=== PATIENT | female | born 2000 | race Caucasian/White ===

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

== ENCOUNTER 2021-03-05 19:51 | Emergency (ER) | payer OTHER, SELFPAY ==
[2021-03-05 20:11] VITALS: BP 119/71; PULSE 64; RESP 18; TEMP 36.6; O2SAT 99; BMI 24.1
--- NOTE | 2021-03-05 20:52 | XRR_ITS ---
PROCEDURE INFORMATION: Exam: XR Thoracic Spine Exam date and time: 03/05/2021 8:52 PM Age: 20 years old Clinical indication: Pain in thoracic spine; Without myelpathy or radiculopathy; Additional info: Back pain, not TECHNIQUE: Imaging protocol: XR of the thoracic spine. Views: 3 views. Total images: 3 COMPARISON: CT abdomen w con* [id number] 11/21/2020 9:51 AM FINDINGS: Bones/joints: Normal. No acute fracture. Normal alignment. Soft tissues: Unremarkable. XR/XR thoracic spine 3V* [id number] IMPRESSION: No acute findings.
--- NOTE | 2021-03-05 20:52 | XRR_ITS ---
PROCEDURE INFORMATION: Exam: XR Lumbosacral Spine Exam date and time: 03/05/2021 8:52 PM Age: 20 years old Clinical indication: Low back pain; Additional info: Back pain, not TECHNIQUE: Imaging protocol: XR of the lumbosacral spine. Views: 2 or 3 views. Total images: 3 COMPARISON: CT abdomen w con* [id number] 11/21/2020 9:51 AM FINDINGS: Bones/joints: Normal. No acute fracture. Normal alignment. Soft tissues: Unremarkable. Other findings: Nipple ring. XR/XR lumbar spine 2-3V* [id number] IMPRESSION: Nonacute.
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
[2021-03-05 21:57] VITALS: BP 111/66; PULSE 64; RESP 14; O2SAT 98
== END 2021-03-05 21:58 | disposition home or self-care (01) ==
PROVIDERS: Emergency Provider Nurse Practitioner Family; PCP Family Medicine
DX: M54.6 Pain in thoracic spine (principal)
CPT/HCPCS: 72072; 72100; 99282

== ENCOUNTER 2021-04-12 05:45 | Emergency (ER) | payer OTHER, SELFPAY ==
[2021-04-12 05:48] VITALS: BP 122/77; PULSE 114; RESP 18; TEMP 37.2; O2SAT 97; BMI 23.3
--- NOTE | 2021-04-12 06:19 | PC.NURSE ---
patient arrival with c/o shingles to left arm that started 3 days ago and cough that started yesterday and today feel increased SOB. states cough is dry and can not move phlegm. LMP last week, last BM yesterday. voice sounds hoarse, BBS clear with good air movement.
--- NOTE | 2021-04-12 06:21 | W.ED.SOB ---
HPI - SOB/Dyspnea General: Chief Complaint: Shortness of Breath/Dyspnea Stated Complaint: Trouble breathing Time Seen by Provider: 04/12/21 05:52 History of Present Illness: HPI Narrative: 20 yo female complaining of cough and shortness of breath that began last night. She also has a small rash on the flexor aspect of her left wrist she is concerned of shingles. States the rash began 2 days ago. She has not had any diarrhea she has had some mild myalgias. Low-grade fever. No dysuria urgency or frequency. MD elicited complaint: shortness of breath and cough Onset (ago): day(s) Timing: constant Severity: mild Exacerbating factors: nothing Relieving factors: nothing Associated symptoms: Reports cough and fever(s); Deny abdominal pain, chest congestion, chest pain, diaphoresis, dizziness, extremity pain, hemoptysis, lightheadedness, myalgias, nausea, orthopnea, palpitations, paresthesias, polydipsia, polyuria, rash, sense of impending doom, syncope or vomiting Treatment prior to arrival: none Review of Systems Const: Reports: fever(s); Denies: diaphoresis ENMT: Denies: throat pain, ear or mastoid pain, nasal discharge or nasal congestion Card: Denies: chest pain, palpitations, lightheadedness, syncope or orthopnea Resp: Denies: hemoptysis or chest congestion GI: Denies: abdominal pain, nausea or vomiting : Denies: flank pain, difficulty voiding, dysuria, urinary frequency or urinary urgency Musc: Denies: extremity pain Skin/Breast: Denies: rash or pruritus Neuro: Denies: dizziness Endo: Denies: polyuria or polydipsia PFSH ED PFSH: Medical History Anxiety Surgical History History of tonsillectomy Family History Other Cancer Diabetes Lung disease Psychiatric illness Stroke Social History Smoking and tobacco status: never smoked Alcohol intake: never Female Reproductive History: Date of last menstrual period: 04/04/20 Physical Exam Const: COMMON NORMALS: no acute distress GENERAL APPEARANCE: cooperative and comfortable ORIENTATION/CONSCIOUSNESS: Yes awake, Yes oriented to person, Yes oriented to place and Yes oriented to time HENMT: COMMON NORMALS: normocephalic, atraumatic and hearing grossly normal bilaterally HEAD & SCALP: normocephalic and atraumatic Neck/C-Spine: COMMON NORMALS: no JVD Resp: COMMON NORMALS: normal respiratory effort, No retractions, No use of accessory muscles and clear to auscultation bilaterally AUSCULTATION: clear to auscultation bilaterally Cardio: COMMON NORMALS: no JVD, regular rate, regular rhythm and No murmurs present (Cardio) RATE: regular rate RHYTHM: regular rhythm GI: COMMON NORMALS: Soft to palpation and No hepatosplenomegaly present AUSCULTATION: Yes normoactive bowel sounds PALPATION: Yes Soft to palpation, No Tenderness to palpation present (GI), No Guarding due to palpation present (GI) and Yes No hepatosplenomegaly present Extremity: COMMON NORMALS: normal to inspection, capillary refill normal, no clubbing, cyanosis or edema, no calf tenderness and no pedal edema Neuro: SENSORIUM/ORIENTATION: Yes oriented to person, Yes oriented to place and Yes oriented to time Skin: OTHER: Small abrasion like lesion on the flexor surface of the left wrist. There is no vesicles. No evidence of any dermatomal pattern with examination of the arm up into the back or neck area. Course Vital Signs: Vital signs: Vital Signs Temperature 99 F 04/12/21 05:48 Pulse Rate 66 04/12/21 07:51 Respiratory Rate 14 04/12/21 07:51 Blood Pressure 101/65 04/12/21 07:51 Pulse Oximetry 95 04/12/21 07:51 MDM - SOB/Dyspnea MDM Narrative: Medical decision making narrative: Suspect patient has viral upper respiratory infection likely COVID COVID testing ordered results are pending will discharge home. Lab Data: Labs: Lab Results 04/12/21 04/12/21 06:36 06:36 WBC 8.6 10^3/uL 10^3/ uL (4.5-13.0) RBC 4.26 10^6/uL 10^6 /uL (4.1-5.3) Hgb 12.6 g/dL g/dL (11.5-15.3) Hct 38.1 % % (37.0-47.0) MCV 89.4 fl fl (81-99) MCH 29.6 pg pg (28.0-34.0) MCHC 33.1 g/dL g/dL (30.0-36.0) RDW 11.9 % L % (12.1-15.1) Plt Count 210 10^3/cmm 10^3 /cmm (130-400) MPV 10.9 fL H fL (7.4-10.4) Neut % (Auto) 73.6 % % Lymph % (Auto) 17.4 % % Holt % (Auto) 7.9 % % Eos % (Auto) 0.5 % % Baso % (Auto) 0.4 % % Neut # (Auto) 6.31 10^3/uL 10^3 /uL (1.8-8.0) Lymph # (Auto) 1.5 10^3/uL 10^3/ uL (1.5-6.5) Holt # (Auto) 0.7 10^3/uL 10^3/ uL (0.2-0.9) Eos # (Auto) 0.0 10^3/uL 10^3/ uL (0.0-0.8) Baso # (Auto) 0.0 10^3/uL 10^3/ uL (0.0-0.1) Nucleated RBC % (a uto) 0 % % Nucleated RBCs # 0.0 /100WBC /100W BC Sodium 136 mmol/L mmol/L (136-145) Potassium 4.3 mmol/L mmol/L (3.5-5.1) Chloride 106 mmol/L mmol/L (98-107) Carbon Dioxide 17 mmol/L L mmol/ L (22-29) Anion Gap 17.3 (5-19) BUN 10 mg/dL mg/dL (6-20) Creatinine 0.7 mg/dL mg/dL (0.5-0.9) GFR Calculation 107.8 mL/min mL/m in (90-130) Glucose 75 mg/dL mg/dL (65-115) Calculated Osmolal ity 280 mOsm/kg L mOs m/kg (285-295) Calcium 8.4 mg/dL L mg/dL (8.5-10.5) Total Bilirubin 0.2 mg/dL mg/dL (0.15-1.2) AST 18 U/L U/L (0-32) ALT 14 U/L U/L (0-33) Alkaline Phosphata se 76 IU/L IU/L (35-105) Total Protein 6.4 g/dL L g/dL (6.6-8.7) Albumin 4.0 g/dL g/dL (3.5-5.2) Globulin 2.4 g/dL g/dL (1.3-4.6) Discharge Plan Discharge Patient Disposition: Home Clinical Impression: Clinical diagnosis of COVID-19 Condition: Stable Prescriptions: No Action (DME) CONTROL 0 .Route .MEDSUPPLY Qty: 1 RF: 0 (DME) Dexcom G6 Grievance Manager Misc See Rx Instructions .Route Qty: 1 RF: 3 (DME) Dexcom G6 Sensor Device See Rx Instructions .Route Qty: 3 RF: 3 (DME) Dexcom G6 Transmitter Device See Rx Instructions .Route Qty: 1 RF: 3 acarbose 25 mg tablet 25 mg PO TID Qty: 270 RF: 3 diclofenac potassium 50 mg tablet 50 mg PO Q8H PRN (Reason: pain) Qty: 15 RF: 0 methocarbamol 750 mg tablet 750 mg PO Q8H PRN (Reason: muscle spasm) Qty: 15 RF: 0 Discharge Orders: Discharge ED (Routine); Ordered 04/12/21 Ordered By: Anil Richardson Referrals: Paulo Gregg, [Primary Care Provider] - Discharge Diet: Usual diet Discharge Activity: Increase activity as tolerated Patient Instructions: Opioid Safety, COVID-19 (Coronavirus Disease 2019) (ED) Activity Restrictions/Additional Instructions: You were tested for COVID-19. Results are pending maintain self quarantine until results have returned. If there is a worsening or change of symptoms return to the emergency room. Coding Level of Care Code ED Branch Operations Manager for Fara Wilkes
--- NOTE | 2021-04-12 06:22 | ECG_ITS ---
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
--- NOTE | 2021-04-12 06:22 | XRR_ITS ---
PROCEDURE INFORMATION: Exam: XR Chest Exam date and time: 04/12/2021 6:22 AM Age: 20 years old Clinical indication: Dyspnea/cough TECHNIQUE: Imaging protocol: XR of the chest. Views: 1 view. COMPARISON: CR XR chest 1V portable [id number] 08/22/2020 2:32 PM FINDINGS: Lungs: No focal peripheral lung consolidation, air bronchogram formation, or silhouette sign. Pleural spaces: No pleural effusion or pneumothorax. Heart/Mediastinum: The cardiac silhouette is not enlarged. The mediastinal contours are normal. Bones/joints: No acute osseous abnormality. XR/XR chest 1V portable [id number] IMPRESSION: No sign of pneumonia.
[2021-04-12 06:42] LABS: Basophils % 0.4 %; Eosinophils % 0.5 %; Hematocrit 38.1 % (37.0-47.0); Hemoglobin 12.6 g/dL (11.5-15.3); Lymphocytes # 1.5 10^3/uL (1.5-6.5); Lymphocytes % 17.4 %; Mean Corpuscular HGB Conc 33.1 g/dL (30.0-36.0); Mean Corpuscular Hemoglobin 29.6 pg (28.0-34.0); Mean Corpuscular Volume 89.4 fl (81-99); Mean Platelet Volume 10.9 fL (7.4-10.4); Monocytes # 0.7 10^3/uL (0.2-0.9); Monocytes % 7.9 %; Neutrophils # 6.31 10^3/uL (1.8-8.0); Neutrophils % 73.6 %; Nucleated Red Blood Cells % 0 %; Platelet Count 210 10^3/cmm (130-400); Red Blood Count 4.26 10^6/uL (4.1-5.3); Red Cell Distribution Width 11.9 % (12.1-15.1); White Blood Count 8.6 10^3/uL (4.5-13.0)
[2021-04-12 07:06] LABS: Alanine Aminotransferase 14 U/L (0-33); Alkaline Phosphatase 76 IU/L (35-105); Anion Gap 17.3 (5-19); Aspartate Amino Transferase 18 U/L (0-32); Blood Urea Nitrogen 10 mg/dL (6-20); Calcium 8.4 mg/dL (8.5-10.5); Carbon Dioxide 17 mmol/L (22-29); Chloride 106 mmol/L (98-107); Globulin 2.4 g/dL (1.3-4.6); Glomerular Filtration Rate 107.8 mL/min (90-130); Glucose 75 mg/dL (65-115); Osmolality Calculated 280 mOsm/kg (285-295); Potassium 4.3 mmol/L (3.5-5.1); Sodium 136 mmol/L (136-145); Total Bilirubin 0.2 mg/dL (0.15-1.2); Total Protein 6.4 g/dL (6.6-8.7)
[2021-04-12 07:51] VITALS: BP 101/65; PULSE 66; RESP 14; O2SAT 95
[2021-04-12 08:56] VITALS: BP 104/58; PULSE 74; O2SAT 95
[2021-04-14 02:37] LABS: Quest SARS-CoV-2 RNA DETECTED (NOT DETECTED)
--- NOTE | 2021-04-14 10:22 | PC.NURSE ---
pt notified of postive pcr result
== END 2021-04-12 08:57 | disposition home or self-care (01) ==
PROVIDERS: Emergency Provider Family Medicine; PCP Family Medicine
DX: U07.1 COVID-19 (principal)
CPT/HCPCS: 71045; 80053; 85025; 87635; 93005; 99283

== ENCOUNTER → 2021-06-17 10:51 | Outpatient (BNVA) | payer OTHER, SELFPAY | PROVIDERS: PCP Family Medicine; Visit Provider Nurse Practitioner Women's Health | DX: Z30.9 Encounter for contraceptive management, unspecified (principal); Z30.430 Encounter for insertion of intrauterine contraceptive device | CPT/HCPCS: 81025 ==

== ENCOUNTER → 2021-07-29 16:48 | Outpatient (BNVA) | payer OTHER, SELFPAY | PROVIDERS: PCP Family Medicine; Visit Provider Nurse Practitioner Women's Health | DX: Z30.431 Encounter for routine checking of intrauterine contraceptive device (principal); R10.2 Pelvic and perineal pain; N83.201 Unspecified ovarian cyst, right side | CPT/HCPCS: 76830 ==

== ENCOUNTER 2021-09-11 10:33 | Emergency (ER) | payer OTHER, SELFPAY ==
[2021-09-11 10:35] VITALS: BP 124/70; PULSE 66; RESP 16; TEMP 37.1; O2SAT 98; BMI 22.4
--- NOTE | 2021-09-11 10:53 | US_ITS ---
WS: [id number] TRANSABDOMINAL PELVIC AND TRANSVAGINAL PELVIC ULTRASOUND HISTORY: right sided pelvic pain COMPARISON: 07/29/2021 Uterus: 7.9 cm x 4.1 cm x 3.2 cm. Normal size anteverted uterus. No fibroid or mass. Endometrium: 0.3 cm. Normal appearance of the endometrium. IUD normally positioned along the endometr ial canal. Right ovary: 3.5 cm x 2.9 cm x 2.6 cm. Normal size ovary. Small follicles with the largest measuring 2.1 x 1.9 x 1.4 cm. The previously described hemorrhagic cyst within the RIGHT ovary has significantl y decreased in size. Left ovary: 2.2 cm x 1.6 cm x 1.1 cm. Normal size. No cystic or solid mass. Small amount of free fluid in the cul-de-sac but overall significantly improved since 07/29/2021. US/US pelvic with transvaginal IMPRESSION: 1. Overall significant improvement in appearance of the RIGHT adnexal hemorrha gic cyst and the free fluid in the pelvis since 07/29/2021. 2. Normal endometrium with normally positioned IUD.
--- NOTE | 2021-09-11 10:54 | W.ED.ABDPA2 ---
HPI - Abdominal Pain General: Chief Complaint: Abdominal Pain Stated Complaint: right sided ovarian pain Time Seen by Provider: 09/11/21 10:40 History of Present Illness: Patient is a 21-year-old G0 female comes to the ED with right pelvic pain. Patient's been having constant right sided pelvic pain for the past 2 months. She has a known right ovarian cyst that she is currently scheduled to have a follow-up ultrasound done to check on cyst at the end of this month. Yesterday her right pelvic pain worsened and her OB told her to come to the ED if pain worsens before schedule ultrasound later this month. She currently rates her pain a 7 out of 10. She started having some light spotting yesterday as well. Denies any heavy bleeding. Denies any fever, chills, nausea/vomiting, dysuria, hematuria or bowel symptoms. Last menstrual period was on July 23, 2021 and she currently has an IUD inserted. Associated Symptoms: Denies chills, constipation, diarrhea, dysuria, fever(s), hematochezia, hematuria, nausea and vomiting Related Data: Date of Last Menstrual Period: 04/04/20 Review of Systems Const: Denies: fever(s), chills or fatigue Eyes: Denies: change in vision or eye discomfort ENMT: Denies: throat pain, odynophagia, nasal discharge or nasal congestion Card: Denies: chest pain, palpitations, edema, swelling of feet/ankles, dyspnea on exertion or orthopnea Resp: Denies: dyspnea, productive cough or non-productive cough GI: Denies: abdominal pain, nausea, vomiting, diarrhea, constipation or hematochezia : Reports: vaginal bleeding (light spotting) and pelvic pain (right side); Denies: flank pain, dysuria or hematuria Musc: Denies: neck pain, back pain or extremity swelling Skin/Breast: Denies: rash or new lesions Neuro: Denies: headache(s), numbness in extremities or weakness in extremities PFS ED PFSH: Medical History Anxiety Diabetes No pertinent past medical history neghx, htn,thyroid,dvt/pe PCP: Paulo BORRERO Surgical History History of tonsillectomy Family History Grandmother Breast cancer maternal--unknown age Family/Other Breast cancer maternal aunt Hypertension paternal great grandmother Father No problems noted. Family/Other Breast cancer maternal great grandma Diabetes paternal great grandmother Other Cancer Denies family history of Colon cancer Ovarian cancer Heart disease Hyperlipidemia Uterine cancer Thyroid disease Stroke Social History Smoking and tobacco status: never smoked Alcohol intake: never Female Reproductive History: Date of last menstrual period: 04/04/20 Physical Exam Const: COMMON NORMALS: patient oriented x3, healthy appearing and alert GENERAL APPEARANCE: cooperative HENMT: COMMON NORMALS: normocephalic HEAD & SCALP: normocephalic MOUTH: Normal oral and palatal mucosa present THROAT: posterior oropharynx normal and uvula midline Neck/C-Spine: COMMON NORMALS: supple GENERAL: Yes normal visual inspection Resp: COMMON NORMALS: normal respiratory effort, No retractions, No use of accessory muscles and clear to auscultation bilaterally AUSCULTATION: clear to auscultation bilaterally Cardio: COMMON NORMALS: regular rate, regular rhythm, S1 normal heart sound present, S2 normal heart sound present, No gallops present (Cardio), No clicks present (Cardio), No murmurs present (Cardio) and Peripheral pulses 2+ throughout RATE: regular rate RHYTHM: regular rhythm HEART SOUNDS: S1 normal heart sound present and S2 normal heart sound present PERIPHERAL PULSES: Peripheral pulses 2+ throughout GI: COMMON NORMALS: Normal to inspection, nondistended, normoactive bowel sounds present, Soft to palpation and no masses PALPATION: Yes Soft to palpation and Yes Tenderness to palpation present (GI) Details: other (Right pelvic tenderness) : COMMON NORMALS: Yes no CVA tenderness BLADDER/KIDNEY EXAM: Yes no CVA tenderness Back/Pelvis: COMMON NORMALS: no CVA tenderness Extremity: COMMON NORMALS: normal to inspection and no pedal edema Neuro: COMMON NORMALS: patient oriented x3 SENSORIUM/ORIENTATION: Yes alert GAIT: Yes Normal gait present Skin: GENERAL SKIN EXAM: dry skin Course Vital Signs: Vital signs: Vital Signs Temperature 98.7 F 09/11/21 10:35 Pulse Rate 66 09/11/21 10:35 Respiratory Rate 16 09/11/21 10:35 Blood Pressure 124/70 09/11/21 10:35 Pulse Oximetry 98 09/11/21 10:35 MDM - Abdominal Pain Medical Decision Making Patient is a 21-year-old G0 female comes to the ED with right pelvic pain. Patient's been having constant right sided pelvic pain for the past 2 months. 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 Vitals are stable. Patient appears nontoxic in no acute distress or pain. Shehas some right pelvic tenderness but rest of exam is benign. CBC, CMP and UA were unremarkable. Ultrasound of pelvis showed an improvement in appearance of right adnexal hemorrhagic cyst and thefree fluid in the pelvis compared to July 29, 2021 ultrasound. Patient is stable for discharge home was diagnosed with an ovarian cyst. She was told to follow-up with her senior manufacturing supervisor doctor within the next week for reevaluation. Return to ED precautions given. Patient understood and agreed with plan. Lab Data I reviewed the patient's lab results. : 09/11/21 11:00 09/11/21 11:00 Labs/Radiology: Radiology Impressions Pelvic/Transvag US 09/11/21 10:53 IMPRESSION: 1. Overall significant improvement in appearance of the RIGHT adnexal hemorrhagic cyst and the free fluid in the pelvis since 07/29/2021. 2. Normal endometrium with normally positioned IUD. Laboratory Results WBC 8.5 10^3/uL (4.5-13.0) 09/11/21 11:00 RBC 4.40 10^6/uL (4.1-5.3) 09/11/21 11:00 Hgb 13.1 g/dL (11.5-15.3) 09/11/21 11:00 Hct 39.0 % (37.0-47.0) 09/11/21 11:00 MCV 88.6 fl (81-99) 09/11/21 11:00 MCH 29.8 pg (28.0-34.0) 09/11/21 11:00 MCHC 33.6 g/dL (30.0-36.0) 09/11/21 11:00 RDW 12.2 % (12.1-15.1) 09/11/21 11:00 Plt Count 264 10^3/cmm (130-400) 09/11/21 11:00 MPV 11.1 fL (7.4-10.4) H 09/11/21 11:00 Neut % (Auto) 59.6 % 09/11/21 11:00 Lymph % (Auto) 30.6 % 09/11/21 11:00 Gooding % (Auto) 6.6 % 09/11/21 11:00 Eos % (Auto) 2.7 % 09/11/21 11:00 Baso % (Auto) 0.4 % 09/11/21 11:00 Neut # (Auto) 5.09 10^3/uL (1.8-8.0) 09/11/21 11:00 Lymph # (Auto) 2.6 10^3/uL (1.5-6.5) 09/11/21 11:00 Gooding # (Auto) 0.6 10^3/uL (0.2-0.9) 09/11/21 11:00 Eos # (Auto) 0.2 10^3/uL (0.0-0.8) 09/11/21 11:00 Baso # (Auto) 0.0 10^3/uL (0.0-0.1) 09/11/21 11:00 Nucleated RBC % (auto) 0 % 09/11/21 11:00 Nucleated RBCs # 0.0 /100WBC 09/11/21 11:00 Sodium 135 mmol/L (136-145) L 09/11/21 11:00 Potassium 4.4 mmol/L (3.5-5.1) 09/11/21 11:00 Chloride 102 mmol/L (98-107) 09/11/21 11:00 Carbon Dioxide 24 mmol/L (22-29) 09/11/21 11:00 Anion Gap 13.4 (5-19) 09/11/21 11:00 BUN 12 mg/dL (6-20) 09/11/21 11:00 Creatinine 0.6 mg/dL (0.5-0.9) 09/11/21 11:00 GFR Calculation 127.5 mL/min (90-130) 09/11/21 11:00 Glucose 71 mg/dL (65-115) 09/11/21 11:00 Calculated Osmolality 278 mOsm/kg (285-295) L 09/11/21 11:00 Calcium 9.3 mg/dL (8.5-10.5) 09/11/21 11:00 Total Bilirubin 0.3 mg/dL (0.15-1.2) 09/11/21 11:00 AST 35 U/L (0-32) H 09/11/21 11:00 ALT 43 U/L (0-33) H 09/11/21 11:00 Alkaline Phosphatase 94 IU/L (35-105) 09/11/21 11:00 Total Protein 7.4 g/dL (6.6-8.7) 09/11/21 11:00 Albumin 4.6 g/dL (3.5-5.2) 09/11/21 11:00 Globulin 2.8 g/dL (1.3-4.6) 09/11/21 11:00 Lipase 48 U/L (13-60) 09/11/21 11:00 HCG, Qual Negative (Negative) 09/11/21 11:00 Urine Color Yellow (Yellow) 09/11/21 10:40 Urine Appearance Clear (CLEAR) 09/11/21 10:40 Urine pH 5 (5-7) 09/11/21 10:40 Ur Specific Strong 1.025 (1.005-1.030) 09/11/21 10:40 Urine Protein Neg (Negative) 09/11/21 10:40 Urine Glucose (UA) Norm (Normal) 09/11/21 10:40 Urine Ketones Negative (Negative) 09/11/21 10:40 Urine Blood Neg (Negative) 09/11/21 10:40 Urine Nitrate Negative (Negative) 09/11/21 10:40 Urine Bilirubin Neg (Negative) 09/11/21 10:40 Prot Sulfosalicylic Acd Negative (Negative) 09/11/21 10:40 Urine Urobilinogen Norm mg/dL (Negative) 09/11/21 10:40 Ur Leukocyte Esterase Negative (Negative) 09/11/21 10:40 Discharge Plan Discharge Patient Disposition: Home Clinical Impression: Right ovarian cyst Condition: Stable Prescriptions: No Action Kyleena 17.5 mcg/24 hrs (5 yrs) 19.5 mg intrauterine device 1 device intrauterine .CONTINUOUS 0RF escitalopram oxalate [Lexapro] 10 mg tablet 10 mg PO DAILY 0RF (DME) Dexcom G6 Project Safety Manager Misc See Rx Instructions .Route Qty: 1 3RF Rx Instructions: As directed (DME) Dexcom G6 Sensor Device See Rx Instructions .Route Qty: 3 3RF Rx Instructions: As directed (DME) Dexcom G6 Transmitter Device See Rx Instructions .Route Qty: 1 3RF Rx Instructions: As directed ibuprofen 800 mg tablet 800 mg PO TID PRN (Reason: pelvic pain) 0RF albuterol sulfate 2.5 mg /3 mL (0.083 %) solution for nebulization 2.5 mg inhalation Q4H PRN (Reason: Shortness Of Breath) 0RF albuterol sulfate 90 mcg/actuation HFA aerosol inhaler 1 - 2 puff INHALATION Q4H PRN (Reason: Shortness Of Breath) 0RF Discharge Orders: Discharge ED (Routine); Ordered 09/11/21 Ordered By: German Pantoja Referrals: Paulo Gregg, DO [Primary Care Provider] - Discharge Diet: Regular Discharge Activity: Increase activity as tolerated Patient Instructions: Ovarian Cyst (ED) Activity Restrictions/Additional Instructions: Follow-up with medical provider as directed. Contact Dr. Smith's office after discharge from ED to set up an appointment for follow-up on ovarian cyst. Take [id number] Tylenol or ibuprofen for pain. Return to the ER or your medical provider if condition worsens. Please read and understand discharge instructions. Thank you for choosing [facility] for your healthcare needs today. Please realize this is an emergency room and that we are providing you with a medical screening exam and this may not be complete and all inclusive of all the testing and or work up that you may need to determine your ailment or severity of your illness. It is very important that you follow up as instructed or that you return to the Emergency Department should you have concerns or if your condition changes or worsens in any way. Coding Level of Care Code ED Flame Gouger for Fara Fwd Exam Comprehensive
[2021-09-11 11:36] LABS: Add Urine Microscopic? NO; Charge for UA Resulting for Rev
[2021-09-11 11:41] LABS: Bilirubin Urine Neg (Negative); Blood Urine Neg (Negative); Glucose Urine UA Norm (Normal); Ketones Urine Negative (Negative); Leukocyte Esterase Urine Negative (Negative); Nitrate Urine Negative (Negative); Protein Urine Neg (Negative); Specific Gravity, Urine 1.025 (1.005-1.030); Sulfosalicylic Acid Urine Negative (Negative); Urine Appearance Clear (CLEAR); Urine Color Yellow (Yellow); Urobilinogen Urine Norm (Negative); pH Urine 5 (5-7)
[2021-09-11 11:41] LABS: Basophils % 0.4 %; Eosinophils # 0.2 10^3/uL (0.0-0.8); Eosinophils % 2.7 %; Hemoglobin 13.1 g/dL (11.5-15.3); Lymphocytes # 2.6 10^3/uL (1.5-6.5); Lymphocytes % 30.6 %; Mean Corpuscular HGB Conc 33.6 g/dL (30.0-36.0); Mean Corpuscular Hemoglobin 29.8 pg (28.0-34.0); Mean Corpuscular Volume 88.6 fl (81-99); Mean Platelet Volume 11.1 fL (7.4-10.4); Monocytes # 0.6 10^3/uL (0.2-0.9); Monocytes % 6.6 %; Neutrophils # 5.09 10^3/uL (1.8-8.0); Neutrophils % 59.6 %; Nucleated Red Blood Cells % 0 %; Platelet Count 264 10^3/cmm (130-400); Red Cell Distribution Width 12.2 % (12.1-15.1); White Blood Count 8.5 10^3/uL (4.5-13.0)
[2021-09-11 11:56] LABS: HCG, Serum Qual Negative (Negative)
[2021-09-11 12:05] LABS: Albumin Level 4.6 g/dL (3.5-5.2); Alkaline Phosphatase 94 IU/L (35-105); Blood Urea Nitrogen 12 mg/dL (6-20); Calcium 9.3 mg/dL (8.5-10.5); Carbon Dioxide 24 mmol/L (22-29); Chloride 102 mmol/L (98-107); Creatinine Clr Calc Pharmacy 138.5831; Globulin 2.8 g/dL (1.3-4.6); Glomerular Filtration Rate 127.5 mL/min (90-130); Glucose 71 mg/dL (65-115); Lipase 48 U/L (13-60); Osmolality Calculated 278 mOsm/kg (285-295); Sodium 135 mmol/L (136-145); Total Bilirubin 0.3 mg/dL (0.15-1.2); Total Protein 7.4 g/dL (6.6-8.7)
[2021-09-11 12:07] LABS: Anion Gap 13.4 (5-19); Potassium 4.4 mmol/L (3.5-5.1)
[2021-09-11 12:08] LABS: Alanine Aminotransferase 43 U/L (0-33); Aspartate Amino Transferase 35 U/L (0-32)
[2021-09-11 12:54] VITALS: BP 110/68; PULSE 59; RESP 16; O2SAT 99
== END 2021-09-11 12:55 | disposition home or self-care (01) ==
PROVIDERS: Emergency Provider Physician Assistant; PCP Family Medicine
DX: N83.201 Unspecified ovarian cyst, right side (principal)
CPT/HCPCS: 76830; 76856; 80053; 81003; 83690; 84703; 85025; 99283

== ENCOUNTER → 2021-10-16 08:48 | Outpatient (BNVA) | payer OTHER, SELFPAY | PROVIDERS: PCP Family Medicine; Visit Provider Nurse Practitioner Women's Health | DX: E11.9 Type 2 diabetes mellitus without complications (principal) | CPT/HCPCS: 83036; 84443 ==

== ENCOUNTER → 2022-01-14 15:08 | Outpatient (BNVA) | payer OTHER, SELFPAY | PROVIDERS: PCP Family Medicine; Visit Provider Clinical Nurse Specialist Adult Health | DX: J02.9 Acute pharyngitis, unspecified (principal) | CPT/HCPCS: 87880 ==

== ENCOUNTER 2022-03-04 08:37 | Outpatient (RCR) | payer OTHER, SELFPAY | END 2022-03-28 23:59 | disposition home or self-care (01) | LOC: SPT 08:37 | PROVIDERS: PCP Family Medicine; Visit Provider Clinical Nurse Specialist Adult Health | DX: M62.830 Muscle spasm of back (principal) | CPT/HCPCS: 97110; 97161 ==

== ENCOUNTER 2022-06-23 08:14 | Outpatient (CLI) | payer OTHER, SELFPAY ==
--- NOTE | 2022-06-23 08:00 | MR_ITS ---
WS: [id number] MRI LUMBAR SPINE NONCONTRAST HISTORY: Low back and bilateral lower extremity pain. COMPARISON: Lumbar spine radiograph 03/05/2021 TECHNIQUE: Sagittal and axial multisequence imaging is submitted. Very slight straightening of the normal lumbar lordosis. Mild curvature. Disc spaces and vertebral body heights are well-preserved. Conus terminates normally at L1-2 disc level. L1-L2: Normal. L2-L3: Normal. L3-L4: Normal. L4-L5: Mild annular disc bulging with facet and ligamentum flavum hypertrophy. No significant stenosi s. L5-S1: Normal. Normal paravertebral soft tissues. MR/MR lumbar spine wo con* [id number] IMPRESSION: 1. No significant central or foraminal stenosis. No disc protrusions. 2. Very mild facet joint arthritis at L4-5.
--- NOTE | 2022-06-23 09:30 | MR_ITS ---
WS: [id number] MRI THORACIC SPINE noncontrast. HISTORY: pain in back COMPARISON: Radiographs 03/05/2021 TECHNIQUE: Multiplanar sequences are performed in sagittal and axial planes. Very slight straightening of the normal thoracic kyphosis. Disc spaces and vertebral body heights are well-maintained. Normal signal thoracic cord. No atrophy or enlargement. Conus tapers normally and n o near L1. No disc protrusions or stenosis. No cord compression. Paravertebral soft tissues are normal. MR/MR thoracic spin wo con* [id number] IMPRESSION: Unremarkable MRI of thoracic spine. No fractures or disc space narrowing. No si gnificant stenosis or disc protrusion.
== END 2022-06-23 08:15 | disposition home or self-care (01) ==
LOC: RAD 08:15
PROVIDERS: Family Provider Family Medicine; PCP Family Medicine; Visit Provider Clinical Nurse Specialist Adult Health
DX: M54.50 Low back pain, unspecified (principal); M54.6 Pain in thoracic spine; M13.88 Other specified arthritis, other site
CPT/HCPCS: 72146; 72148

== ENCOUNTER 2022-12-22 13:33 | Outpatient (CLI) | payer OTHER, SELFPAY ==
[2022-12-22 13:54] VITALS: BP 100/56; PULSE 54
[2022-12-22 14:14] VITALS: BP 98/55; PULSE 62
[2022-12-22 14:22] LABS: Amorphous Sediment Urine 1+ /hpf; Bacteria Urine TRACE /hpf; Bilirubin Urine Neg (Negative); Blood Urine Neg (Negative); Glucose Urine UA Norm (Normal); Ketones Urine Negative (Negative); Leukocyte Esterase Urine Negative (Negative); Nitrate Urine Negative (Negative); Protein Urine Neg (Negative); Squamous Epithelial Cell Urine 0-4 /hpf (0-5); Sulfosalicylic Acid Urine Negative (Negative); Urine Appearance SL Hazy (CLEAR); Urine Color Yellow (Yellow); Urobilinogen Urine Norm (Negative); WBC Urine 0-4 /hpf (0-5); pH Urine 8 (5-7)
[2022-12-22 14:23] LABS: Add Urine Culture? No
[2022-12-22 14:27] VITALS: TEMP 36.4
[2022-12-22 14:34] VITALS: BP 105/65; PULSE 67
[2022-12-22 14:54] VITALS: BP 110/62; PULSE 60
[2022-12-22 15:14] VITALS: BP 104/60; PULSE 66
== END 2022-12-22 15:26 | disposition home or self-care (01) ==
LOC: OPOB 13:46 → OBGYN 13:47
PROVIDERS: Family Provider Family Medicine; PCP Family Medicine; Visit Provider Obstetrics & Gynecology
DX: O26.899 Other specified pregnancy related conditions, unspecified trimester (principal); Z3A.00 Weeks of gestation of pregnancy not specified; R10.9 Unspecified abdominal pain
CPT/HCPCS: 81001; 99211

== ENCOUNTER 2023-03-17 20:21 | Outpatient (CLI) | payer OTHER, SELFPAY ==
[2023-03-17] VITALS (10 sets, daily range): BP systolic 100–118; BP diastolic 59–70; PULSE 66–90; RESP 15–16; TEMP 36.6; BMI 26.6
[2023-03-17 20:55] LABS: Nitrazine Paper, PH Negative
[2023-03-17 21:42] LABS: Actim Prom Negative
== END 2023-03-17 22:00 | disposition home or self-care (01) ==
LOC: OPOB 20:26 → OBGYN 20:28 → OPOB 20:40 → OBGYN 20:41
PROVIDERS: Family Provider Family Medicine; PCP Family Medicine; Visit Provider Family Medicine
DX: O26.899 Other specified pregnancy related conditions, unspecified trimester (principal); Z3A.00 Weeks of gestation of pregnancy not specified; N89.8 Other specified noninflammatory disorders of vagina
CPT/HCPCS: 59025; 83986; 84112; 99211

== ENCOUNTER 2023-03-22 21:53 | Outpatient (CLI) | payer OTHER, SELFPAY ==
[2023-03-22 22:02] VITALS: BP 118/62; PULSE 61; TEMP 36.2
[2023-03-22 22:18] VITALS: BP 112/64; PULSE 62
[2023-03-22 22:22] VITALS: BMI 26.8
== END 2023-03-22 22:33 | disposition home or self-care (01) ==
LOC: OPOB 21:54 → OBGYN 21:55
PROVIDERS: Family Provider Family Medicine; PCP Family Medicine; Visit Provider Family Medicine
DX: O26.899 Other specified pregnancy related conditions, unspecified trimester (principal); Z3A.00 Weeks of gestation of pregnancy not specified; N89.8 Other specified noninflammatory disorders of vagina
CPT/HCPCS: 59025; 83986; 99211

== ENCOUNTER 2023-03-28 08:28 | Outpatient (CLI) | payer OTHER, SELFPAY ==
[2023-03-28] VITALS (11 sets, daily range): BP systolic 100–109; BP diastolic 58–72; PULSE 59–86; RESP 16; BMI 27.3
[2023-03-28 09:29] LABS: Bilirubin Urine Neg (Negative); Blood Urine Neg (Negative); Glucose Urine UA Norm (Normal); Ketones Urine 1+ (Negative); Leukocyte Esterase Urine Negative (Negative); Nitrate Urine Negative (Negative); Protein Urine Neg (Negative); Sulfosalicylic Acid Urine Negative (Negative); Urine Appearance SL Hazy (CLEAR); Urine Color Yellow (Yellow); Urobilinogen Urine 1 mg/dL (Negative); pH Urine 8 (5-7)
[2023-03-28 09:30] LABS: Add Urine Culture? No; Bacteria Urine 2+ /hpf; WBC Urine 0-4 /hpf (0-5)
[2023-03-28] MEDS: lactated ringers 1,000 ML 999 ML IV (09:32)
[2023-03-28] MEDS: ondansetron 2 mg/ML SDV 2 mL 8 MG IVP (09:33)
[2023-03-28 09:39] LABS: Alanine Aminotransferase 12 U/L (0-33); Albumin Level 2.9 g/dL (3.5-5.2); Alkaline Phosphatase 194 U/L (35-105); Anion Gap 12.4 (5-19); Aspartate Amino Transferase 16 U/L (0-32); Blood Urea Nitrogen 4 mg/dL (6-20); Calcium 8.4 mg/dL (8.5-10.5); Carbon Dioxide 21 mmol/L (22-29); Chloride 103 mmol/L (98-107); Globulin 2.8 g/dL (1.3-4.6); Glomerular Filtration Rate 155.7 mL/min (90-130); Glucose 83 mg/dL (65-115); Osmolality Calculated 272 mOsm/kg (285-295); Potassium 3.4 mmol/L (3.5-5.1); Sodium 133 mmol/L (136-145); Total Bilirubin 0.4 mg/dL (0.15-1.2); Total Protein 5.7 g/dL (6.6-8.7)
--- NOTE | 2023-03-28 11:25 | P.TNLD_ITS ---
OB L&D Triage Visit Information: Date of evaluation: 03/28/23 Reason for evaluation: threatened labor Comments/Additional reason(s) for visit: 22-year-old female G1, P0 at 38.3 weeks gestation with DWIGHT 04/08/2023 observed on labor and delivery triage with complaints of nausea and vomiting unable to keep fluids or solids down since yesterday. Patient complains of occasional contractions and low back pain. She denies leakage of fluid or vaginal bleeding. Patient receives care with Dr. Encarnacion and intends to deliver in [place]. Patient's history was somewhat questionable for type 1 diabetes, she denied any treatment with insulin. CMP was essentially unremarkable with normal blood sugar noted. Urine had +1 ketones which I suspect will resolve now that she is tolerating fluids and can eat solid food. Discussed a bland diet and to increase hydration as tolerated. If after returning home she is unable to keep food or fluids down or any signs of labor to include frequent contractions leakage of fluid or vaginal bleeding or decreased movement patient is instructed to return here to labor and delivery are to [place]. Patient verbalizes understanding. Patient's pelvic exam from her previous exam last week is unchanged. Patient was treated with IV fluid for hydration and received Zofran IV with resolution of nausea and vomiting. Patient was then able to tolerate p.o. fluids as well as crackers and juice. Patient admitted feeling much better and was ready to be discharged home. Evaluation: Baseline heart rate: 140 Variability: Moderate (11-25) monitor accelerations: Present 15x15 monitor decelerations: None Cervical dilation (cm): 2 Cervical effacement (%): 60 station: -3 Laboratory results: Laboratory Tests 03/28/23 03/28/23 09:02 09:07 Sodium 133 L Potassium 3.4 L Chloride 103 Carbon Dioxide 21 L Anion Gap 12.4 BUN 4 L Creatinine 0.5 GFR Calculation 155.7 H Glucose 83 Calculated Osmolal ity 272 L Calcium 8.4 L Total Bilirubin 0.4 AST 16 ALT 12 Alkaline Phosphata se 194 H Total Protein 5.7 L Albumin 2.9 L Globulin 2.8 Urine Color Yellow Urine Appearance Sl hazy A Urine pH 8 H Ur Specific Gravit y 1.010 Urine Protein Neg Urine Glucose (UA) Norm Urine Ketones 1+ H Urine Blood Neg Urine Nitrate Negative Urine Bilirubin Neg Prot Sulfosalicyli c Acd Negative Urine Urobilinogen 1 H Ur Leukocyte Madelyn ase Negative Urine RBC None Urine WBC 0-4 H Ur Squamous Epith Cells 5-10 H Amorphous Sediment Not Reportable Urine Bacteria 2+ H Vital signs: Vital Signs - 24 hr 03/28/23 08:39 03/28/23 08:54 03/28/23 08:55 Pulse Rate 86 85 Respiratory Rate 16 Blood Pressure 109/65 108/68 03/28/23 08:55 03/28/23 09:09 03/28/23 09:40 Pulse Rate 84 59 L Respiratory Rate 16 Blood Pressure 103/61 100/58 03/28/23 09:55 03/28/23 10:11 03/28/23 10:25 Pulse Rate 79 65 68 Respiratory Rate Blood Pressure 102/66 108/69 107/72 03/28/23 10:40 03/28/23 10:55 03/28/23 11:09 Pulse Rate 74 67 60 Respiratory Rate Blood Pressure 107/64 107/66 108/66 Final Diagnosis Final Diagnosis (1) 38 weeks gestation of : Status: Acute Code(s): Z3A.38 - 38 weeks gestation of (2) Nausea and vomiting: Status: Acute Code(s): R11.2 - Nausea with vomiting, unspecified (3) Irregular contractions: Status: Acute Code(s): O47.9 - False labor, unspecified Other Information/Follow up Discharge patient to home, patient to return if unable to keep fluids or solids down. Signs of labor were reviewed to include intense contractions, leakage of fluid, vaginal bleeding or decreased movement. Patient is to return to labor and delivery here at the [facility] where she has plan to deliver. Coding Level of Care Code Acute Code for Chg Fwd Diagnoses 38 weeks gestation of Z3A.38 Nausea and vomiting R11.2 Irregular contractions O47.9
== END 2023-03-28 11:18 | disposition home or self-care (01) ==
LOC: OPOB 08:33 → OBGYN 08:33
PROVIDERS: Family Provider Family Medicine; PCP Family Medicine; Visit Provider Obstetrics & Gynecology
DX: O47.9 False labor, unspecified (principal); Z3A.38 38 weeks gestation of pregnancy; R11.2 Nausea with vomiting, unspecified
CPT/HCPCS: 59025; 80053; 81001; 96374; 99211; J2405; J7120

== ENCOUNTER 2023-06-08 12:52 | Outpatient (CLI) | payer OTHER, SELFPAY ==
--- NOTE | 2023-06-08 12:56 | US_ITS ---
WS: [id number] ULTRASOUND RIGHT BREAST HISTORY: R BREAST MASS/LUMP, breast-feeding. COMPARISON: 02/02/2020. TECHNIQUE: 2-D and Doppler. Palpable area in the RIGHT breast corresponds to an ovoid complex cystic mass with low level echoes m easuring 1.8 x 0.7 cm in the retroareolar region. This is tubular in appearance. Similar finding was noted on a prior ultrasound from 02/02/2020. IMPRESSION: US/US breast RT limited* [id number] BI-RADS: 2-Benign FOLLOW-UP: See Report Complex elongated cystic area with low-level echoes is probably a dilated ecta tic duct. There is no increased vascularity or wall thickening to suggest absce ss. Similar findings were noted in 2019.
== END 2023-06-08 12:53 | disposition home or self-care (01) ==
LOC: RAD 12:52
PROVIDERS: Family Provider Family Medicine; PCP Family Medicine; Visit Provider Nurse Practitioner Family
DX: N63.41 Unspecified lump in right breast, subareolar (principal)
CPT/HCPCS: 76642

== ENCOUNTER → 2023-09-02 11:12 | Outpatient (BNVA) | payer OTHER, SELFPAY | PROVIDERS: Family Provider Family Medicine; PCP Family Medicine; Visit Provider Clinical Nurse Specialist Adult Health | DX: R53.83 Other fatigue (principal); R73.9 Hyperglycemia, unspecified | CPT/HCPCS: 80053; 82728; 83550; 84443; 85025 ==

== ENCOUNTER 2023-10-05 08:46 | Outpatient (CLI) | payer OTHER, SELFPAY ==
[2023-10-05 09:25] LABS: Glucose Fasting 87 mg/dL (74-109)
[2023-10-05 11:04] LABS: Glucose 1 Hour 52 mg/dL
[2023-10-05 11:58] LABS: Glucose 2 Hour 66 mg/dL
[2023-10-05 13:13] LABS: Glucose 3 Hour 72 mg/dL
== END 2023-10-05 08:47 | disposition home or self-care (01) ==
LOC: LAB 08:48
PROVIDERS: Family Provider Family Medicine; PCP Family Medicine; Visit Provider Internal Medicine Endocrinology, Diabetes & Metabolism
DX: E16.2 Hypoglycemia, unspecified (principal)
CPT/HCPCS: 36415; 82951; 82952

== ENCOUNTER 2023-11-02 19:15 | Emergency (ER) | payer OTHER, SELFPAY ==
[2023-11-02 19:25] VITALS: BP 101/65; PULSE 63; RESP 16; TEMP 36.8; O2SAT 98
--- NOTE | 2023-11-02 21:00 | ED_ITS ---
HPI - Allergic Reaction General: Chief complaint: Allergic Reaction Stated complaint: Allergic reaction Time Seen by Provider: 11/02/23 19:34 Source: patient Mode of arrival: ambulatory Limitations: no limitations History of Present Illness: HPI narrative: Patient presents emergency department today for evaluation treatment of continued redness, itching, and dry rash around her right eye and right cheek area. Patient states she noticed onset earlier today and was seen in urgent care. They treated her with a steroid shot which did Give her relief through today however, she started to notice the redness and rash were coming back and presents back to the ER. Patient is currently breast-feeding and is concerned about her milk supply so she does not want to take antihistamines. She still has vision in her right eye. It has not swollen shut. No signs of blisters, vesicles, or wounds. No known contact with an allergen that she is aware of. Review of Systems General: Reports: 10 or more systems reviewed and unremarkable except in HPI and below PFSH ED PFSH: Medical History Recurrent streptococcal tonsillitis Diabetes Anxiety Surgical History History of tonsillectomy Family History Grandmother Breast cancer maternal--unknown age Family/Other Breast cancer maternal aunt Hypertension paternal great grandmother Father No problems noted. Family/Other Breast cancer maternal great grandma Diabetes paternal great grandmother Other Cancer Denies family history of Colon cancer Ovarian cancer Heart disease Hyperlipidemia Uterine cancer Thyroid disease Stroke Social History Smoking and tobacco/nicotine status: never used tobacco/nicotine Alcohol intake: never Substance/Drug Use: never Physical Exam Const: COMMON NORMALS: no acute distress, average body habitus and patient oriented x3 HENMT: COMMON NORMALS: normocephalic, atraumatic, hearing grossly normal bilaterally, Normal external nose present and moist oral mucous membranes HEAD & SCALP: normocephalic and atraumatic NOSE: Normal external nose present Eye: COMMON NORMALS: Equal, round and reactive pupils present, EOMs intact bilaterally and conjunctivae normal CONJUNCTIVA: Yes conjunctivae normal PUPIL: Yes Equal, round and reactive pupils present Neck/C-Spine: COMMON NORMALS: no JVD Lymph: LYMPHATIC: no lymphadenopathy noted Resp: COMMON NORMALS: normal respiratory effort, No retractions and No use of accessory muscles Cardio: COMMON NORMALS: no JVD, regular rate and regular rhythm RATE: regular rate RHYTHM: regular rhythm GI: COMMON NORMALS: Normal to inspection, nondistended, normoactive bowel sounds present : COMMON NORMALS: Yes no CVA tenderness BLADDER/KIDNEY EXAM: Yes no CVA tenderness Back/Pelvis: COMMON NORMALS: no CVA tenderness and thoraco-lumbar ROM normal Extremity: COMMON NORMALS: normal to inspection, full ROM and capillary refill normal Neuro: COMMON NORMALS: patient oriented x3 Psych: COMMON NORMALS: mental status grossly normal, Normal thought process present, cooperative, normal affect and activity/motor behavior normal THOUGHT PROCESS: Normal thought process present Skin: NARRATIVE SKIN EXAM: Patient does have some redness noted to the upper right eyelid extending across the right cheek region. It appears very dry, a little bit bumpy, and there is some flaking of dry skin present. No signs of any vesicles. Course Vital Signs: Vital signs: Vital Signs Temperature 98.3 F 11/02/23 19:25 Pulse Rate 65 11/02/23 21:21 Respiratory Rate 16 11/02/23 21:21 Blood Pressure 101/65 11/02/23 19:25 Pulse Oximetry 99 11/02/23 21:21 Oxygen Delivery Me thod Room Air 11/02/23 19:25 MDM - Allergic Reaction Medical Decision Making Patient has findings most consistent with a contact dermatitis of some sort to the right side of her face by her right upper eyelid extending around the right orbit down in the right cheek region. Patient does not have any significant edema or swelling of the right orbit. Patient's eyes easily kept open independently without any change in her vision. The conjunctive a shows no signs of any injections and there is no matting or draining. No vesicles concerning for zoster. Patient reportedly had improvement with use of steroids however, as the steroid began to wear off, rash began to come back. We did discuss how this can recur and get a rebound reaction when the medication wears off. Explained I would like to treat her for several days instead of 1 single time. As patient does not wish to take antihistamines due to her milk supply, we discussed the possibility of applying an [id number] topical hydrocortisone cream-as long she keeps it out of her eye. However, if she changes her mind, I did discuss first and second-generation antihistamine use in her discharge paperwork for her to try. Recommended a follow-up appoint with her primary care but, should be seen and reevaluated back in the ER for any lip, tongue, throat swelling. Patient verbalizes understanding and agreement to the treatment plan. Differential Diagnosis Likely allergic reaction and contact dermatitis; Unlikely anaphylaxis, angioedema, adverse reaction to drug, viral enanthem or urticaria No radiology studies performed this visit Discharge Plan Discharge Patient Disposition: Home Clinical Impression: Allergic reaction Condition: Stable Prescriptions: New prednisone 20 mg tablet See Rx Instructions .ROUTE .COMPLEX 7 Days Qty: 15 0RF Rx Instructions: take 3 tabs daily for 3 days. Then take 2 tabs daily for 2 days. Then take 1 tab daily until gone. No Action albuterol sulfate 2.5 mg /3 mL (0.083 %) solution for nebulization 2.5 mg inhalation Q4H PRN (DME) Dexcom G6 Sensor Device See Rx Instructions .Route Qty: 9 2RF Rx Instructions: change every 10 days (DME) Dexcom G6 Cd Technician Misc See Rx Instructions .Route Qty: 1 3RF Rx Instructions: As directed (DME) Dexcom G6 Transmitter Device See Rx Instructions .Route Qty: 2 3RF Rx Instructions: change every 3 months methocarbamol 500 mg tablet 500 mg PO TID PRN (Reason: muscle spasm) Qty: 60 0RF 10-400 mg-mcg Capsule 1 cap PO DAILY Lexapro 10 mg Tablet 10 mg PO DAILY Discharge Orders: Discharge ED (Routine); Ordered 11/02/23 Ordered By: Lalitha Olivera Referrals: Paulo Gregg DO [Primary Care Provider] - Discharge Diet: Usual diet Discharge Activity: Increase activity as tolerated Patient Instructions: Allergic Reaction Activity Restrictions/Additional Instructions: Reaction today is suspicious for a more contact dermatitis type allergic reaction versus an orally ingested reaction. However, the fact that he received steroids and had improvement but, rash came back is indicative of what we call a rebound reaction. As the treatment starts to wear off, the offending agent is still present and causes a redevelopment of symptoms. Unfortunately, sometimes we have to treat patients for several days to prevent the rebound reactions from occurring. I provided you steroids sent to your pharmacy to be picked up and continued in the morning. If you change your mind about Benadryl, you can take 25 to 50 mg every 6 hours. You can also use second-generation antihistamine such as Zyrtec, Claritin, or Pamela to help with itching. Otherwise, you can use an [id number] hydrocortisone cream topically to help with itching and rash on your face. Watch for any lip, tongue, or throat swelling. If this occurs you need to be seen in the emergency department. Coding Level of Care Code ED [place]ana Attendant for Fara Wilkes
[2023-11-02] MEDS: dexamethasone 10 mg/mL INJ IM (21:02)
[2023-11-02 21:20] VITALS: PULSE 60; RESP 16; O2SAT 99
[2023-11-02 21:21] VITALS: PULSE 65; RESP 16; O2SAT 99
== END 2023-11-02 21:22 | disposition home or self-care (01) ==
PROVIDERS: Emergency Provider Physician Assistant; PCP Family Medicine
DX: T78.40XA Allergy, unspecified, initial encounter (principal); E11.9 Type 2 diabetes mellitus without complications; X58.XXXA Exposure to other specified factors, initial encounter
CPT/HCPCS: 96372; 99284; J1100

== ENCOUNTER 2023-12-30 14:23 | Emergency (ER) | payer OTHER, SELFPAY ==
[2023-12-30 14:31] VITALS: BP 110/74; PULSE 81; RESP 16; TEMP 36.9; O2SAT 96
--- NOTE | 2023-12-30 14:34 | ECG_ITS ---
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 Measurements Intervals [place] Rate: 86 P: 84 NM: 141 QRS: 88 QRSD: 92 T: 72 QT: 363 QTc: 434 Interpretive Statements SINUS RHYTHM INCOMPLETE RIGHT BUNDLE BRANCH BLOCK [90+ ms QRS DURATION, TERMINAL R IN V1/V2, 40+ ms S IN I/aVL/V4/V5/V6] No previous ECG available for comparison Electronically Signed On 01-01-2024 21:08:30 CDT by Nikhil Merino M.D. [id number] f
[2023-12-30 16:37] LABS: Basophils % 0.3 %; Eosinophils % 0.2 %; Hematocrit 40.6 % (36-47); Lymphocytes # 2.2 10^3/uL (0.8-4.8); Lymphocytes % 22.9 %; Mean Corpuscular HGB Conc 32.3 g/dL (30-55); Mean Corpuscular Volume 86.8 fl (85-98); Mean Platelet Volume 10.1 fL (7.4-10.4); Monocytes # 0.5 10^3/uL (0.2-0.9); Monocytes % 5.5 %; Neutrophils # 6.92 10^3/uL (1.8-7.7); Neutrophils % 70.9 %; Nucleated Red Blood Cells % 0 %; Platelet Count 280 10^3/cmm (157-399); Red Blood Count 4.68 10^6/uL (3.85-5.65); Red Cell Distribution Width 13.1 % (12.1-15.1); White Blood Count 9.77 10^3/uL (3.29-11.43)
[2023-12-30 16:54] LABS: HCG, Serum Qual Negative (Negative)
[2023-12-30 16:58] LABS: Alanine Aminotransferase 16 U/L (0-33); Albumin Level 4.6 g/dL (3.5-5.2); Alkaline Phosphatase 129 U/L (35-105); Aspartate Amino Transferase 17 U/L (0-32); Blood Urea Nitrogen 9 mg/dL (6-20); Calcium 9.2 mg/dL (8.5-10.5); Carbon Dioxide 26 mmol/L (22-29); Chloride 102 mmol/L (98-107); Creatinine Clr Calc Pharmacy 111.3895; Globulin 3.1 g/dL (1.3-4.6); Glomerular Filtration Rate 104.6 mL/min (90-130); Glucose 85 mg/dL (65-115); Osmolality Calculated 288 mOsm/kg (285-295); Sodium 140 mmol/L (136-145); Total Bilirubin 0.3 mg/dL (0.15-1.2); Total Protein 7.7 g/dL (6.6-8.7)
--- NOTE | 2023-12-30 17:31 | W.ED.HA ---
HPI - Headache General: Chief Complaint: Headache Stated Complaint: dizzy, loss of vision,sharp shoulder pain Time Seen by Provider: 12/30/23 17:31 History of Present Illness: 23-year-old female comes in today with an episode of shortness of breath and numbness all over. Patient appears nontoxic. Patient appears in no acute distress. Respirations were even. Skin was warm and dry. Patient has recently been being monitored per a cardiac heart monitor due to some episodes of syncope. Patient's working diagnosis is POTS. Patient also has a history of hypoglycemic events. Patient takes no routine medications or supplements. Patient reports allergies to hydrocodone and zinc. Patient's last meal was at noon today. Related Data Home Medications Medication Instructions Recorded Confirmed no.58-iron bisglycinate 1 cap PO DAILY 12/22/22 11/30/23 10 mg iron-folic acid 400 mcg capsule escitalopram oxalate 10 mg tablet 10 mg PO DAILY 03/28/23 11/02/23 (Lexapro) albuterol sulfate 2.5 mg/3 mL 2.5 mg inhalation Q4H PRN 08/06/23 11/02/23 (0.083 %) solution for nebulization Previous Rx's Medication Instructions Recorded blood-glucose meter,continuous #1 ea 05/12/22 (Dexcom G6 Blocker And Cutter Contact Lens) blood-glucose sensor (Dexcom G6 #9 ea 05/12/22 Sensor device) blood-glucose transmitter (Dexcom #2 ea 05/25/22 G6 Transmitter device) methocarbamol 500 mg tablet 500 mg PO TID PRN muscle spasm #60 10/04/23 tabs amoxicillin 875 mg tablet 875 mg PO Q12H #14 tabs 11/30/23 Allergies Allergy/AdvReac Type Severity Reaction Status Date / Time zinc Allergy Severe rash Verified 11/30/23 11:39 hydrocodone Allergy Intermediate ALGY-Swell Verified 11/30/23 11:39 Lip/Tongue/Throat Review of Systems General: Reports: 10 or more systems reviewed and unremarkable except in HPI and below PFSH ED PFSH: Medical History Recurrent streptococcal tonsillitis Diabetes Anxiety Surgical History History of tonsillectomy Family History Grandmother Breast cancer maternal--unknown age Family/Other Breast cancer maternal aunt Hypertension paternal great grandmother Father No problems noted. Family/Other Breast cancer maternal great grandma Diabetes paternal great grandmother Other Cancer Denies family history of Colon cancer Ovarian cancer Heart disease Hyperlipidemia Uterine cancer Thyroid disease Stroke Social History Smoking and tobacco/nicotine status: never used tobacco/nicotine Alcohol intake: never Substance/Drug Use: never Physical Exam Const: COMMON NORMALS: alert HENMT: HEAD & SCALP: normal to inspection Neck/C-Spine: COMMON NORMALS: full ROM Resp: COMMON NORMALS: normal respiratory effort and clear to auscultation bilaterally AUSCULTATION: clear to auscultation bilaterally Cardio: COMMON NORMALS: regular rate RATE: regular rate GI: COMMON NORMALS: Soft to palpation and non-tender PALPATION: Yes Soft to palpation Back/Pelvis: COMMON NORMALS: thoracic and lumbar spine normal to inspection Extremity: COMMON NORMALS: full ROM Neuro: SENSORIUM/ORIENTATION: Yes alert Skin: COMMON NORMALS: turgor normal GENERAL SKIN EXAM: turgor normal Course Vital Signs: Vital signs: Vital Signs Temperature 98.4 F 12/30/23 14:31 Pulse Rate 81 12/30/23 14:31 Respiratory Rate 16 12/30/23 14:31 Blood Pressure 110/74 12/30/23 14:31 Pulse Oximetry 96 12/30/23 14:31 Oxygen Delivery Me thod Room Air 12/30/23 14:31 MDM - Headache Medical Decision Making 23-year-old female comes in today for complaints of lightheadedness and shakiness. Patient felt like she was going to pass out. Patient at this time reports no symptoms. Patient has had similar episodes in the past but not as extreme. Patient at this time has a heart monitor in place for evaluation of syncopal events. Patient does have a history of hyperglycemia but her blood glucose was normal. Respirations are even lungs are clear to auscultation. EKG showed a sinus rhythm. Differential diagnosis includes but not limited to anxiety, POTS, PSVT resolved, electrolyte imbalance. CBC, CMP, and test were all negative. EKG shows a sinus rhythm. Reviewed exam with patient recommended follow-up with cardiology for review of Holter monitor report. No signs of severe illness. No signs of injury. Patient was stable and discharged home. Lab Data 12/30/23 16:17 12/30/23 16:17 Laboratory Results WBC 9.77 10^3/uL (3.29-11.43) 12/30/23 16:17 RBC 4.68 10^6/uL (3.85-5.65) 12/30/23 16:17 Hgb 13.10 g/dL (11.27-16.99) 12/30/23 16:17 Hct 40.6 % (36-47) 12/30/23 16:17 MCV 86.8 fl (85-98) 12/30/23 16:17 MCH 28.0 pg (27-33) 12/30/23 16:17 MCHC 32.3 g/dL (30-55) 12/30/23 16:17 RDW 13.1 % (12.1-15.1) 12/30/23 16:17 Plt Count 280 10^3/cmm (157-399) 12/30/23 16:17 MPV 10.1 fL (7.4-10.4) 12/30/23 16:17 Neut % (Auto) 70.9 % 12/30/23 16:17 Lymph % (Auto) 22.9 % 12/30/23 16:17 [place] % (Auto) 5.5 % 12/30/23 16:17 Eos % (Auto) 0.2 % 12/30/23 16:17 Baso % (Auto) 0.3 % 12/30/23 16:17 Neut # (Auto) 6.92 10^3/uL (1.8-7.7) 12/30/23 16:17 Lymph # (Auto) 2.2 10^3/uL (0.8-4.8) 12/30/23 16:17 [place] # (Auto) 0.5 10^3/uL (0.2-0.9) 12/30/23 16:17 Eos # (Auto) 0.0 10^3/uL (0.0-0.8) 12/30/23 16:17 Baso # (Auto) 0.0 10^3/uL (0.0-0.1) 12/30/23 16:17 Nucleated RBC % (auto) 0 % 12/30/23 16:17 Nucleated RBCs # 0.0 /100WBC 12/30/23 16:17 Sodium 140 mmol/L (136-145) 12/30/23 16:17 Potassium 4.0 mmol/L (3.5-5.1) 12/30/23 16:17 Chloride 102 mmol/L (98-107) 12/30/23 16:17 Carbon Dioxide 26 mmol/L (22-29) 12/30/23 16:17 Anion Gap 16.0 (5-19) 12/30/23 16:17 BUN 9 mg/dL (6-20) 12/30/23 16:17 Creatinine 0.7 mg/dL (0.5-0.9) 12/30/23 16:17 GFR Calculation 104.6 mL/min (90-130) 12/30/23 16:17 Glucose 85 mg/dL (65-115) 12/30/23 16:17 Calculated Osmolality 288 mOsm/kg (285-295) 12/30/23 16:17 Calcium 9.2 mg/dL (8.5-10.5) 12/30/23 16:17 Total Bilirubin 0.3 mg/dL (0.15-1.2) 12/30/23 16:17 AST 17 U/L (0-32) 12/30/23 16:17 ALT 16 U/L (0-33) 12/30/23 16:17 Alkaline Phosphatase 129 U/L (35-105) H 12/30/23 16:17 Total Protein 7.7 g/dL (6.6-8.7) 12/30/23 16:17 Albumin 4.6 g/dL (3.5-5.2) 12/30/23 16:17 Globulin 3.1 g/dL (1.3-4.6) 12/30/23 16:17 HCG, Qual Negative (Negative) 12/30/23 16:17 No radiology studies performed this visit EKG Data EKG 1: I personally reviewed and interpreted this EKG as follows: EKG interpretation date: 12/30/23 EKG interpretation time: 14:35 Interpretation: Sinus rhythm with a regular rate [address] elevation or ectopy is noted. No prior exam was available for comparison. Computer generated interpretation: Sinus rhythm, incomplete right bundle branch block, borderline EKG, unconfirmed report. Discharge Plan Discharge Patient Disposition: Home Clinical Impression: Near syncope Condition: Stable Prescriptions: No Action albuterol sulfate 2.5 mg /3 mL (0.083 %) solution for nebulization 2.5 mg inhalation Q4H PRN amoxicillin 875 mg tablet 875 mg PO Q12H Qty: 14 1RF (DME) Dexcom G6 Sensor Device See Rx Instructions .Route Qty: 9 2RF Rx Instructions: change every 10 days (DME) Dexcom G6 Blocker And Cutter Contact Lens Misc See Rx Instructions .Route Qty: 1 3RF Rx Instructions: As directed (DME) Dexcom G6 Transmitter Device See Rx Instructions .Route Qty: 2 3RF Rx Instructions: change every 3 months methocarbamol 500 mg tablet 500 mg PO TID PRN (Reason: muscle spasm) Qty: 60 0RF 10-400 mg-mcg Capsule 1 cap PO DAILY Lexapro 10 mg Tablet 10 mg PO DAILY Discharge Orders: Discharge ED (Routine); Ordered 12/30/23 Ordered By: Jeremy Velasco Referrals: Paulo Gregg DO [Primary Care Provider] - Discharge Diet: Usual diet Discharge Activity: Increase activity as tolerated Patient Instructions: Syncope (ED) Activity Restrictions/Additional Instructions: Follow-up with primary care or shot tube machine tender for further evaluation and treatment. Return to ER for new concerns or worsening symptoms. Coding Level of Care Code ED Musical Instrument Supervisor for Fara Wilkes
[2023-12-30 18:09] VITALS: BP 127/71; PULSE 83; O2SAT 96
== END 2023-12-30 18:09 | disposition home or self-care (01) ==
PROVIDERS: Emergency Medicine; Emergency Provider Nurse Practitioner Family; PCP Family Medicine
DX: R55 Syncope and collapse (principal); I45.10 Unspecified right bundle-branch block; E11.9 Type 2 diabetes mellitus without complications
CPT/HCPCS: 36415; 80053; 84703; 85025; 93005; 99284

== ENCOUNTER → 2024-02-17 15:32 | Outpatient (BNVA) | payer OTHER, SELFPAY | PROVIDERS: PCP Family Medicine; Visit Provider Orthopaedic Surgery | DX: M54.9 Dorsalgia, unspecified (principal) | CPT/HCPCS: 72110 ==

== ENCOUNTER → 2024-03-16 10:43 | Outpatient (BNVA) | payer OTHER, SELFPAY | PROVIDERS: PCP Family Medicine; Visit Provider Internal Medicine Cardiovascular Disease | DX: R00.0 Tachycardia, unspecified (principal); I45.10 Unspecified right bundle-branch block | CPT/HCPCS: 93005 ==

== ENCOUNTER 2024-04-12 05:55 | Outpatient (CLI) | payer OTHER, SELFPAY ==
--- NOTE | 2024-04-12 06:15 | USCV_ITS ---
Cheyanne Burt Age: 23 Gender: F : 2000 Exam Date: 04/12/2024 06:15 Ordering Phys: Brown Quarles MD ([email or web address]) Technologist: [place] [facility] [place]: sycope BP: 110 / 70 HR: 72 Rhythm: Sinus Technical Quality: Adequate MEASUREMENTS (Male / Female) Normal Values 2D ECHO LV Diastolic Diameter PLAX 4.6 cm 4.2 - 5.9 / 3.9 - 5.3 cm IVS Diastolic Thickness 1.1 cm 0.6 - 1.0 / 0.6 - 0.9 cm IVS Systolic Thickness 1.5 cm LVPW Diastolic Thickness 0.8 cm 0.6 - 1.0 / 0.6 - 0.9 cm LVPW Systolic Thickness 1.2 cm LVOT Diameter 1.7 cm LV Ejection Fraction 2D Teich 69.2 % LV Ejection Fraction MOD 4C 63.9 % LV Ejection Fraction MOD 2C 64.1 % LV Ejection Fraction 2C AL 63.7 % LA Diameter 2.9 cm RA Systolic Volume 4C AL 23.6 ml RA Systolic Volume 4C MOD 23.1 ml Aorta at Sinotubular Diameter 2.0 cm IVC Diameter 1.6 cm M-MODE LA Ao Ratio MM 1.5 AV Cusp Separation MM 2.0 cm DOPPLER AV Peak Velocity 125.0 cm/s LVOT Peak Velocity 98.0 cm/s AV Area Cont Eq vti 2.0 cm squared AV Area Cont Eq pk 1.7 cm squared MV Area PHT 5.1 cm squared Mitral E to A Ratio 2.4 TV Peak Velocity 152.0 cm/s TR Peak Velocity 160.0 cm/s TR Peak Gradient 10.2 mmHg TV Peak E Velocity 109.0 cm/s PV Peak Velocity 91.0 cm/s FINDINGS Left Ventricle Normal left ventricular size, systolic function and wall thickness, with no regional wall motion abnormalities. Left ventricular ejection fraction is estimated at 60 %. Grade I/IV diastolic dysfunction (abnormal relaxation filling pattern), normal to mildly elevated filling pressures. Right Ventricle The right ventricle is normal in size and function. Right Atrium The right atrium is normal in size. Left Atrium The left atrium is normal in size. Mitral Valve Structurally normal mitral valve without significant stenosis or prolapse. There is trace mitral regurgitation. Aortic Valve Structurally normal aortic valve without significant sclerosis or stenosis. There is no aortic regurgitation. Tricuspid Valve Structurally normal tricuspid valve without significant stenosis or regurgitation. Pulmonary artery systolic pressure is normal. Pulmonic Valve Mild pulmonary valve regurgitation. Pericardium Normal pericardium without effusion. Aorta Normal ascending aorta dimension. IVC The inferior vena cava appears normal. CONCLUSIONS Normal left ventricular size, systolic function and wall thickness, with no regional wall motion abnormalities. Left ventricular ejection fraction is estimated at 60 %. Grade I/IV diastolic dysfunction (abnormal relaxation filling pattern), normal to mildly elevated filling pressures. Mild pulmonary valve regurgitation. There is no pericardial effusion. Right atrial pressure is around 5 mm of mercury. Brown Quarles MD (Electronically Signed) Final Date: 13 April 2024 20:36 S
== END 2024-04-12 05:56 | disposition home or self-care (01) ==
PROVIDERS: PCP Family Medicine; Visit Provider Internal Medicine Cardiovascular Disease
DX: R00.2 Palpitations (principal); R53.83 Other fatigue; R00.0 Tachycardia, unspecified; I37.1 Nonrheumatic pulmonary valve insufficiency; R93.1 Abnormal findings on diagnostic imaging of heart and coronary circulation
CPT/HCPCS: 93306

== ENCOUNTER → 2024-04-18 13:03 | Outpatient (BNVA) | payer OTHER, SELFPAY | PROVIDERS: PCP Family Medicine; Visit Provider Orthopaedic Surgery | DX: M54.50 Low back pain, unspecified (principal) | CPT/HCPCS: 72110; 73502 ==

== ENCOUNTER 2024-07-14 10:36 | Outpatient (CLI) | payer OTHER, SELFPAY ==
--- NOTE | 2024-07-14 10:52 | XR_ITS ---
WS: [id number] Pelvis, AP view, 07/14/2024 Clinical Data: Pain Comparison: Pelvis and right hip, 04/18/2024 Findings: No fractures or dislocations are seen. The SI joints and pubic symphysis are intact. The soft tissues are not remarkable. The hips are normal. There is an intrauterine device. XR/XR pelvis 1-2V* [id number] Impression: Negative AP pelvis.
--- NOTE | 2024-07-14 10:53 | XR_ITS ---
WS: [id number] Measurement of the lower extremity lengths, 07/14/2024 Clinical Data: limb length difference Comparison: None. Findings: Right femur measures 42.5 cm from the right femoral head to the medial femoral articular surface. Right tibia measures 39.2 cm from the medial tibial plateau to the tibial plafond. The left femur measures 42.5 cm from the left femoral head to the left medial femoral articular surface. The left tibia measures 39.1 cm from the left medial tibial plateau to the tibial plafond. XR/XR bone length study [id number] Impression: Normal measurements of the femurs and tibiae.
== END 2024-07-14 10:37 | disposition home or self-care (01) ==
PROVIDERS: PCP Family Medicine; Visit Provider Podiatrist Foot & Ankle Surgery
DX: M21.70 Unequal limb length (acquired), unspecified site (principal); R52 Pain, unspecified; Z97.5 Presence of (intrauterine) contraceptive device
CPT/HCPCS: 72170; 77073

== ENCOUNTER 2024-11-17 21:00 | Outpatient (CLI) | payer OTHER, SELFPAY ==
[2024-11-17 21:59] LABS: PCP Screen Urine Negative (Negative)
== END 2024-11-17 21:01 | disposition home or self-care (01) ==
LOC: LAB 21:01
PROVIDERS: PCP Family Medicine; Visit Provider Family Medicine
DX: Z01.89 Encounter for other specified special examinations (principal)
CPT/HCPCS: 80306

== ENCOUNTER 2024-12-07 16:32 | Outpatient (CLI) | payer OTHER, SELFPAY ==
--- NOTE | 2024-12-07 16:36 | XRR_ITS ---
PROCEDURE INFORMATION: Exam: XR Left Knee Exam date and time: 12/07/2024 4:42 PM Age: 24 years old Clinical indication: Left; Pain in posterior knee x3 months; Additional info: M25.562 - pain in left knee TECHNIQUE: Imaging protocol: Radiologic exam of the left knee. Views: 3 views. COMPARISON: CR XR tibia fibula LT 2V [id number] 04/23/2020 8:12 PM FINDINGS: Bones/joints: Normal. Soft tissues: Normal. XR/XR knee LT 3V* [id number] IMPRESSION: No acute findings.
== END 2024-12-07 16:33 | disposition home or self-care (01) ==
LOC: RAD 16:33
PROVIDERS: PCP Family Medicine; Visit Provider Clinical Nurse Specialist Adult Health
DX: M25.562 Pain in left knee (principal)
CPT/HCPCS: 73562

== ENCOUNTER 2024-12-12 15:04 | Outpatient (CLI) | payer OTHER, SELFPAY ==
--- NOTE | 2024-12-12 15:15 | MR_ITS ---
WS: [id number] MRI LEFT KNEE NONCONTRAST TECHNIQUE: Axial PD, coronal PD fat sat, coronal PD, sagittal PD, and sagittal PD fat-sat images obtained. CLINICAL INFORMATION: M25.562 - Pain in left knee COMPARISON: None. FINDINGS: Distal quadriceps and patella tendons are intact. Hypertrophic patella. Normal ACL and PCL. Medial and lateral meniscus are normal in appearance. No acute appearing meniscal tears. Normal bone marrow signal in the fibula head. Normal bone marrow signal in the femoral condyles and tibial plateau. Normal bone marrow signal in the patella. Popliteal fossa is normal in appearance. Normal popliteus. Normal medial and lateral collateral ligaments. Normal biceps femoris. MR/MR knee LT wo con* [id number] IMPRESSION: 1. Normal ACL and PCL. 2. Slightly hypertrophic patella. 3. No acute appearing meniscal tears. 4. Normal popliteal fossa. 5. No other acute findings. Outbridge grading: grade I: focal areas of hyperintensity with normal contour
== END 2024-12-12 15:05 | disposition home or self-care (01) ==
LOC: RAD 15:06
PROVIDERS: PCP Family Medicine; Visit Provider Clinical Nurse Specialist Adult Health
DX: M25.562 Pain in left knee (principal)
CPT/HCPCS: 73721